=== PATIENT | female | born 1970 | race Two or more races ===

== ENCOUNTER 2018-06-01 08:20 | Emergency (ER) | payer OTHER ==
[2018-06-01 08:40] VITALS: BP 113/59; PULSE 74; TEMP 98.7; BMI 27.4
--- NOTE | 2018-06-01 08:50 | PDOC ---
History of Present Illness - General Chief Complaint: Pain, Acute Stated Complaint: PAIN IN BREAST Time Seen by Provider: 06/01/18 08:49 Past History - Past Medical History Allergies/Adverse Reactions: Allergies Allergy/AdvReac Type Severity Reaction Status Date / Time No Known Allergies Allergy Verified 06/01/18 08:35 Home Medications: Ambulatory Orders Ibuprofen 800 mg PO TID #30 tablet 06/01/18 traMADol HCL [Ultram -] 50 mg PO Q8H PRN #10 tablet MDD 3 06/01/18 Anemia: No Asthma: No Cancer: No Cardiac Disorders: No CVA: No COPD: No CHF: No Dementia: No Diabetes: No GI Disorders: Yes (GASTRITIS) Disorders: No HTN: No Hypercholesterolemia: No Liver Disease: No Seizures: No Thyroid Disease: No - Surgical History Abdominal Surgery: Yes (ABDOMINOPLASTY) Appendectomy: No Cardiac Surgery: No Cholecystectomy: No Lung Surgery: No Neurologic Surgery: No Orthopedic Surgery: No - Suicide/Smoking/Psychosocial Hx Smoking History: Never smoked Hx Alcohol Use: No Drug/Substance Use Hx: No *Physical Exam - Vital Signs Last Vital Signs Temp Pulse Resp BP Pulse Ox 98.7 F 74 16 113/59 L 99 06/01/18 08:37 06/01/18 08:37 06/01/18 08:37 06/01/18 08:37 06/01/18 08:37 *DC/Admit/Observation/Transfer Diagnosis at time of Disposition: Breast pain - Discharge Dispostion Disposition: HOME Condition at time of disposition: Stable Decision to Admit order: No - Referrals Referrals: Odell Goldstein MD [Primary Care Provider] - Che Vieira MD [Staff Physician] - - Patient Instructions Printed Discharge Instructions: DI for Breast Pain (Mastalgia) Additional Instructions: You have breast pain. Your ultrasound showed inflammation. There were no signs of infection. Please wear a comfortable supportive bra. You may use warm heating pads to the area to help with pain. Please follow up with the breast specialist as soon as possible. A referral has been provided. Return to the emergency department if you have any fevers, worsening pain, skin changes of the breast, or if you have any changes in your symptoms. Tienes dolor en los senos. [place]ell ultrasonido mostr inflamacin. No haba signos de infeccin. Por favor, use un cmodo sostn de apoyo. Puede usar almohadillas calientes en la elise para aliviar el dolor. Por favor gudelia un seguimiento con el especialista en senos lo antes posible. Se vazquez proporcionado pilar referencia. Regrese al departamento de emergencias si tiene fiebre, empeoramiento del dolor , cambios en la piel de los senos o si tiene algn cambio en emile sntomas. - Post Discharge Activity Forms/Work/School Notes: Back to Work
[2018-06-01] MEDS ORDERED: KETOROLAC TROMETHAMINE 60 MG/2 ML VIAL IM ONE (11:04)
[2018-06-01] MEDS ORDERED: KETOROLAC TROMETHAMINE 60 MG/2 ML VIAL ONE (11:06)
== END 2018-06-01 11:32 | disposition home or self-care (01) ==
LOC: JERFT 08:20
PROC: 3E0233Z Introduction of Anti-inflammatory into Muscle, Percutaneous Approach (ICD-10-PCS; principal; 2018-06-01)
DX: N64.4 Mastodynia (principal)
CPT/HCPCS: 76642-TC-RT; 96372; 99281-25